=== PATIENT | female | born 1960 ===

== ENCOUNTER 2020-09-11 08:32 | Day surgery (SDC) | payer OTHER ==
[~2020-09-11 08:32] MED LIST: ATORVASTATIN CA10 MG PO; FOLIC ACID20 MG PO; NORVASC2.5 M1 PO
[2020-09-11] MEDS ORDERED: IBU600 MG PO (13:33)
== END 2020-09-11 16:40 | disposition home or self-care (01) ==
LOC: CIR.AMB 08:32
PROVIDERS: ATTEND Obstetrics & Gynecology Gynecology
DX: N95.0 Postmenopausal bleeding (principal); Z20.822 Contact with and (suspected) exposure to COVID-19